=== PATIENT | male | born 1965 | race Caucasian/White ===

== ENCOUNTER 2021-06-21 08:52 | Observation (INO) ==
[2021-06-21] MEDS ORDERED: ZOFRAN INJ 4 MG VIAL IVP ONE ×2 (09:12→10:34)
[2021-06-21] MEDS ORDERED: NS 1,000 ML IV 1,000 ML IV ONE ×2 (09:12→10:28)
[2021-06-21 09:13] VITALS: BMI 28.7
--- NOTE | 2021-06-21 09:19 | DR.DIZZY ---
HPI Time seen Time Seen by Provider: 06/21/21 09:02 Complaint Chief Complaint Doctor Comments: 56 y/o male presents with generalized weakness since last pm. Recently treated for dental infection with amoxicillin/tramadol x past few days. Didn't sleep well do to mouth pain. Pain was located left lower jaw, was constant, currently better, no pain. Got up and moved bowels this am, developed onset of generalized weakness this am. Denies pain, fever, chills, URI symptoms. No bowel or bladder issues. Having nausea, no vomiting. COVID-19 Coronavirus risk:travel/contact w/high risk person: No Has patient experienced Coronavirus symptoms: No Nurses Notes Reviewed Nurses Notes Review: Yes Source History Provided: Patient and Significant Other Mode of Arrival Mode of Arrival: Ambulatory Context Stroke Symptoms: None PMH PMH Past Medical History Comment: borderline diabetes, hypothyroidism (s/p partial thyroidectomy) Surgical History: Thyroidectomy (partial) and Tonsillectomy Infectious screening Isolation: Standard ROS Review of Systems Constitutional: Weakness Eyes: No Symptoms Reported ENTM: No Symptoms Reported Respiratoy: No Symptoms Reported Cardiovascular: No Symptoms Reported Gastrointestinal/Abdominal: Nausea Genitourinary: No Symptoms Reported Neurological: No Symptoms Reported Musculoskeletal: No Symptoms Reported Integumentary: No Symptoms Reported Hematologic/Lymphatic: No Symptoms Reported Psychiatric: No Symptoms Reported All Other Systems: Reviewed and Negative PE Vital Signs Vitals: Temperature 97.8 F Pulse Rate 88 Respiratory Rate 15 Blood Pressure 172/90 O2 Sat by Pulse Oximetry 98 General Limitations: No Limitations General Appearance: Alert and In No Apparent Distress Head Head Exam: Normal Inspection Eyes Eye exam: Normal Appearance ENT ENT Exam: Normal Exam and Mucous Membranes Moist Neck Neck Exam: Normal Inspection Chest Chest Inspection: Normal Inspection Respiratory Respiratory Exam: Normal Lung Sounds Bilat; negative Accessory Muscle Use and Respiratory Distress Respiratory Exam: Bilateral: Clear to Auscultation Cardiovascular Cardiovascular Exam: Regular Rate, Normal Rhythm and Normal Heart Sounds Abdominal Exam Abdominal Exam: Normal Inspection, Normal Bowel Sounds and Soft; negative Tenderness Extremeties Extremities Exam: Normal Inspection Neurologic Neurological Exam: Alert, Oriented X3 and CN II-XII Intact; negative Motor Sensory Deficit Psychiatric Psychiatric Exam: Normal Affect Skin Skin Exam: Warm and Dry MDM Differential Diagnosis Differential Diagnosis: Dehydration, Electrolyte disorder and Other (dental abscess) COURSE Treatment Treatment: 56 y/o recently started treatment for dental infection, presents with nausea and weakness this AM. PE benign, VSS. W/u initiated. Given IV fluids, IV zofran. 1318 - Pt was given 2nd L NS, 2nd round of zofran. No improvement. Given IM phenergan. W/u unremarkable. Possible reaction to tramadol, started yesterday. Discussed findings with pt. Discussed with his PCP, Dr Khanna, will admit for observation. ROR Labs Reviewed Laboratory Results Reviewed?: Yes Result Diagrams: 06/21/21 09:33 06/21/21 09:33 Laboratory: WBC 6.9 X10^3/uL (3.6-10.0) 06/21/21 09:33 RBC 4.95 X10^6/uL (4.7-6.0) 06/21/21 09:33 Hgb 15.3 g/dL (13.5-18.0) 06/21/21 09:33 Hct 44.8 % (42.0-54.0) 06/21/21 09:33 MCV 90.6 fL (80.0-100.0) 06/21/21 09:33 MCH 30.9 pg (27.0-34.0) 06/21/21 09:33 MCHC 34.1 g/dL (33.0-35.0) 06/21/21 09:33 RDW 13.5 % (11.6-16.5) 06/21/21 09:33 Plt Count 159 X10^3/uL (150.0-450.0) 06/21/21 09:33 MPV 9.1 fL (7.4-11.0) 06/21/21 09:33 Neut % (Auto) 82.0 % (42.0-75.0) H 06/21/21 09:33 Lymph % (Auto) 13.3 % (21.0-51.0) L 06/21/21 09:33 [place] % (Auto) 3.8 % (0.0-13.0) 06/21/21 09:33 Eos % (Auto) 0.5 % (0.9-2.9) L 06/21/21 09:33 Baso % (Auto) 0.4 % (0.2-1.0) 06/21/21 09:33 Neut # (Auto) 5.7 x10^3/uL (2.2-4.8) H 06/21/21 09:33 Lymph # (Auto) 0.9 X10^3/uL (1.3-2.9) L 06/21/21 09:33 [place] # (Auto) 0.3 x10^3/uL (0.3-0.8) 06/21/21 09:33 Eos # (Auto) 0.0 x10^3/uL (0.0-0.2) 06/21/21 09:33 Baso # (Auto) 0.0 X10^3/uL (0.0-0.1) 06/21/21 09:33 Absolute Nucleated RBC 0.1 /100WBC 06/21/21 09:33 Sodium 140 mmol/L (136-145) 06/21/21 09:33 Corrected Sodium 141 mmol/L (136-145) 06/21/21 09:33 Potassium 3.9 mmol/L (3.5-5.1) 06/21/21 09:33 Chloride 103 mmol/L (98-107) 06/21/21 09:33 Carbon Dioxide 28.2 mmol/L (21-32) 06/21/21 09:33 BUN 11 mg/dL (7-18) 06/21/21 09:33 Creatinine 1.35 mg/dL (0.70-1.30) H 06/21/21 09:33 Est GFR (MDRD) Af Amer > 60 (>60) 06/21/21 09:33 Est GFR (MDRD) Non-Af 58 (>60) L 06/21/21 09:33 Glucose 151 mg/dL (65-99) H 06/21/21 09:33 Calcium 8.7 mg/dL (8.5-10.1) 06/21/21 09:33 Corrected Calcium TNP 06/21/21 09:33 Total Bilirubin 0.70 mg/dL (0.2-1.0) 06/21/21 09:33 AST 17 Units/L (15-37) 06/21/21 09:33 ALT 34 Units/L (12-78) 06/21/21 09:33 Alkaline Phosphatase 60 Units/L (46-116) 06/21/21 09:33 Creatine Kinase 108 Units/L (39-308) 06/21/21 09:33 CK-MB (CK-2) 1.0 ng/mL (0-4.0) 06/21/21 09:33 CK/CKMB % Calc 0.9 % (<4) 06/21/21 09:33 Troponin I < 0.02 ng/mL (0-1.5) 06/21/21 09:33 Total Protein 6.7 g/dL (6.4-8.2) 06/21/21 09:33 Albumin 3.6 g/dL (3.4-5.0) 06/21/21 09:33 Globulin 3.1 g/dL (2.5-4.5) 06/21/21 09:33 Albumin/Globulin Ratio 1.2 Ratio (1.1-2.1) 06/21/21 09:33 Lipase 132 Units/L (73-393) 06/21/21 09:33 EKG Rate: 77 [place]: LAD Rhythm: NSR Block: None Hypertrophy: LAE ST: Nonsp Opioid Opioid Risk Tool Total: 0 Total Score Risk Category: Low Risk Copyright: Roc CASEY predicting aberrant behaviors Diagnosis Discharge Problem: Nausea Narrative Support Text: Weakness Instructions Forms: Precautions for COVID19 [facility] Patient Portal Social Distancing
[2021-06-21] MEDS ORDERED: NS 1,000 ML IV 1,000 ML ONE ×2 (09:23→10:29)
[2021-06-21] MEDS ORDERED: ZOFRAN INJ 4 MG VIAL ONE ×2 (09:23→10:36)
[2021-06-21 09:39] LABS: BASOPHILS % (AUTO) 0.4 % (0.2-1.0); EOSINOPHILS % (AUTO) 0.5 % (0.9-2.9); HEMATOCRIT 44.8 % (42.0-54.0); HEMOGLOBIN 15.3 g/dL (13.5-18.0); LYMPHOCYTES # (AUTO) 0.9 X10^3/uL (1.3-2.9); LYMPHOCYTES % (AUTO) 13.3 % (21.0-51.0); MEAN CORPUSCULAR HEMOGLOBIN 30.9 pg (27.0-34.0); MEAN CORPUSCULAR HGB CONC 34.1 g/dL (33.0-35.0); MEAN CORPUSCULAR VOLUME 90.6 fL (80.0-100.0); MEAN PLATELET VOLUME 9.1 fL (7.4-11.0); MONOCYTES # (AUTO) 0.3 x10^3/uL (0.3-0.8); MONOCYTES % (AUTO) 3.8 % (0.0-13.0); NEUTROPHILS # (AUTO) 5.7 x10^3/uL (2.2-4.8); PLATELET COUNT 159 X10^3/uL (150.0-450.0); RED BLOOD COUNT 4.95 X10^6/uL (4.7-6.0); RED CELL DISTRIBUTION WIDTH 13.5 % (11.6-16.5); WHITE BLOOD COUNT 6.9 X10^3/uL (3.6-10.0)
[2021-06-21 10:05] LABS: ALANINE AMINOTRANSFERASE 34 Units/L (12-78); ALBUMIN 3.6 g/dL (3.4-5.0); ALKALINE PHOSPHATASE 60 Units/L (46-116); ASPARTATE AMINO TRANSFERASE 17 Units/L (15-37); BLOOD UREA NITROGEN 11 mg/dL (7-18); CALCIUM 8.7 mg/dL (8.5-10.1); CARBON DIOXIDE 28.2 mmol/L (21-32); CHLORIDE 103 mmol/L (98-107); CKMB % 0.9 % (<4); COR NA(FOR HYPERGLY) 141 mmol/L (136-145); CREATINE KINASE 108 Units/L (39-308); CREATININE 1.35 mg/dL (0.70-1.30); LIPASE 132 Units/L (73-393); SODIUM 140 mmol/L (136-145); TOTAL PROTEIN 6.7 g/dL (6.4-8.2); TROPONIN I < 0.02 ng/mL (0-1.5); eGFR NON BLACK RACES 58 (>60)
--- NOTE | 2021-06-21 10:09 | RAD ---
HISTORYN/V, WEAKNESS. DENTAL WORK YESTERDAYSTUDYCHEST, 1 VIEWCOMPARISONNoneTECHNIQUEAP view of the chestFINDINGSThe cardiac and mediastinal contours are within normal limits. The lungs are clear without focal consolidation or segmental collapse. No pleural effusion or pneumothorax.IMPRESSIONNo acute pulmonary process.Electronically signed by: sIai Hyde (Jun 21, 2021 10:08:43)
[2021-06-21] MEDS ORDERED: PROTONIX INJ 40 MG VIAL IVP ONE (10:34)
[2021-06-21] MEDS ORDERED: PROTONIX INJ 40 MG VIAL ONE (10:36)
[2021-06-21] MEDS ORDERED: PHENERGAN INJ 25 MG IM ONE ×2 (11:45→12:16)
[2021-06-21] MEDS ORDERED: D5 1/2 NS 1,000 ML 1,000 ML IV ONE (12:21)
[2021-06-21] MEDS: D5 1/2 NS 1,000 ML 1,000 ML IV SCH ×2 (12:27→20:58)
[2021-06-21] MEDS ORDERED: NORCO 5/325 MG TAB PO ONE (13:49)
[2021-06-21 13:52] LABS: APPEARANCE,URINE CLEAR (CLEAR); BILIRUBIN,URINE NEGATIVE (NEGATIVE); BLOOD/HEMOGLOBIN,URINE NEGATIVE (NEGATIVE); COLOR,URINE YELLOW (YELLOW); GLUCOSE, URINE 2+ (NEGATIVE); KETONES,URINE 2+ (NEGATIVE); LEUKOCYTE ESTERASE ,URINE NEGATIVE (NEGATIVE); NITRITES,URINE NEGATIVE (NEGATIVE); PROTEIN,URINE NEGATIVE (NEGATIVE); UROBILINOGEN,URINE NORMAL (NORMAL)
[2021-06-21] MEDS ORDERED: NORCO 5/325 MG TAB ONE (14:30)
[2021-06-21] MEDS ORDERED: ZOFRAN INJ 4 MG VIAL IVP PRN (14:38)
[2021-06-21] MEDS ORDERED: D5 1/2 NS 1,000 ML 1,000 ML IV SCH (14:38)
[2021-06-21 15:36] LABS: CKMB % 1.4 % (<4); CREATINE KINASE 89 Units/L (39-308); CREATINE KINASE MB 1.2 ng/mL (0-4.0); TROPONIN I < 0.02 ng/mL (0-1.5)
[2021-06-21] MEDS: NORCO 5/325 MG TAB PO PRN (20:58)
[2021-06-21 21:39] LABS: CKMB % 1.1 % (<4); CREATINE KINASE 89 Units/L (39-308); TROPONIN I < 0.02 ng/mL (0-1.5)
[2021-06-22 03:15] LABS: BASOPHILS % (AUTO) 0.6 % (0.2-1.0); EOSINOPHILS # (AUTO) 0.1 x10^3/uL (0.0-0.2); EOSINOPHILS % (AUTO) 1.6 % (0.9-2.9); HEMATOCRIT 41.3 % (42.0-54.0); HEMOGLOBIN 13.9 g/dL (13.5-18.0); LYMPHOCYTES # (AUTO) 2.2 X10^3/uL (1.3-2.9); LYMPHOCYTES % (AUTO) 28.7 % (21.0-51.0); MEAN CORPUSCULAR HEMOGLOBIN 30.6 pg (27.0-34.0); MEAN CORPUSCULAR HGB CONC 33.7 g/dL (33.0-35.0); MEAN CORPUSCULAR VOLUME 90.7 fL (80.0-100.0); MEAN PLATELET VOLUME 9.2 fL (7.4-11.0); MONOCYTES # (AUTO) 0.5 x10^3/uL (0.3-0.8); MONOCYTES % (AUTO) 6.7 % (0.0-13.0); NEUTROPHILS # (AUTO) 4.8 x10^3/uL (2.2-4.8); NEUTROPHILS % (AUTO) 62.4 % (42.0-75.0); PLATELET COUNT 140 X10^3/uL (150.0-450.0); RED BLOOD COUNT 4.56 X10^6/uL (4.7-6.0); RED CELL DISTRIBUTION WIDTH 13.9 % (11.6-16.5); WHITE BLOOD COUNT 7.6 X10^3/uL (3.6-10.0)
[2021-06-22 03:23] LABS: ALANINE AMINOTRANSFERASE 29 Units/L (12-78); ALBUMIN 2.9 g/dL (3.4-5.0); ALKALINE PHOSPHATASE 50 Units/L (46-116); ASPARTATE AMINO TRANSFERASE 14 Units/L (15-37); BLOOD UREA NITROGEN 7 mg/dL (7-18); CALCIUM 8.1 mg/dL (8.5-10.1); CARBON DIOXIDE 31.1 mmol/L (21-32); CHLORIDE 107 mmol/L (98-107); SODIUM 143 mmol/L (136-145); TOTAL PROTEIN 5.7 g/dL (6.4-8.2); eGFR NON BLACK RACES > 60 (>60)
[2021-06-22 03:31] LABS: CKMB % 1.3 % (<4); CREATINE KINASE 77 Units/L (39-308); CREATINE KINASE MB < 1.0 ng/mL (0-4.0); TROPONIN I < 0.02 ng/mL (0-1.5)
[2021-06-22] MEDS: D5 1/2 NS 1,000 ML 1,000 ML IV SCH (04:03)
[2021-06-22] MEDS: NORCO 5/325 MG TAB PO PRN ×2 (04:03→09:00)
[2021-06-22 08:11] VITALS: BP 161/86
[2021-06-22] MEDS ORDERED: CELEBREX PO ONE (08:57)
--- NOTE | 2021-06-22 11:22 | DR.CARTERS ---
Short Stay Summary - Admission Date Date of Admission: 06/21/21 - Discharge Date Discharge Date: 06/22/21 - Admission Diagnoses (1) Weakness Status: Acute (2) Dizziness Status: Acute (3) Nausea Status: Acute (4) Dental abscess Status: Acute - Hospital Course Hospital Course: TIME SPENT ON CLINICAL ASSESSMENT, REVIEWING LABS AND IMAGING, DECISION MAKING, AND DOCUMENTATION GREATER THAN 75 MINUTES. IS A 56 YEAR OLD PATIENT OF OURS. HE PRESENTED TO THE ER WITH COMPLAINTS OF SEVERE WEAKENSS, DIZZINESS, AND LEFT SIDED LOWER JAW PAIN. PATIENT REPORTED RECENTLY BEING DIAGNOSED WITH A DENTAL ABSCESS. HE WAS PRESCRIBED AMOXICILLIN AND TRAMADOL. HE REPORTED BEING COMPLIANT WITH MEDICATIONS. HE REPORTED THAT UPON WAKENING ON 06/21, HE HAD SEVERE WEAKNESS AND WAS UNABLE TO STAND DUE TO DIZZINESS. HE DENIED FEVER, CHILLS, URI SYMPTOMS, OR VOMITING. HE DID ADMIT TO NAUSEA. HIS PMH INCLUDES HYPOTHYROIDISM, PARITAL THYROIDECTOMY, AND TONSILLECTOMY. ON ARRIVAL, VITALS WERE: 97.8-93-16-99%-171/86. LABS WERE OBTAINED. HE WAS HEMODYNAMICALLY STABLE. CARDIAC ENZYMES WERE WITHIN NORMAL LIMITS. TSH WITHIN NORMAL RANGE. URINALYSIS UNREMARKABLE. COVID-19 NEGATIVE. CHEST XRAY OBTAINED AND REVEALED: NO ACUTE PULMONARY PROCESS. IN THE ER, HE WAS GIVEN A NORMAL SALINE BOLUS X 2, ZOFRAN 4MG IV X 2, PROTONIX 40MG IV X 1, PHENERGAN 25MG IM X 1, NORCO 5/325MG PO X 1. HE CONTINUED WITH SEVERE WEAKNESS, DIZZINESS, AND NAUSEA, DESPITE MEDS GIVEN. HE WAS ADMITTED TO THE HOSPITAL FOR FURTHER EVALUATION AND TREATMENT OF WEAKNESS, DIZZINESS, NAUSEA, DENTAL ABSCESS. HE WAS STARTED ON D51/2NS AT 125ML/HR, NORCO 5/325MG PO Q4H PRN PAIN, ZOFRAN 4MG IV Q6H PRN PAIN, AND AMOXICILLIN 500MG QID. OTHERWISE, WE PLANNED TO FOLLOW UP WITH AM LABS AND CONTINUE TO MONITOR. ON THE MORNING FOLLOWING ADMISSION, PATIENT IS ALERT AND ORIENTED, LYING IN BED ON MORNING ROUNDS. HE DENIES WEAKNESS OR DIZZINESS THIS MORNING. HE DOES CONTINUE WITH PAIN TO THE LEFT JAW AREA AND OCCASIONAL NAUSEA, BUT ADMITS TO IMPROVEMENT SINCE ADMISSION. ON EXAMINATION, HE DOES HAVE SLIGHT ERYTHEMA AND SWELLING TO THE LEFT LOWER GUM AREA. HEART IS REGULAR IN RATE AND RHYTHM. ABDOMEN IS ROUND, SOFT, AND NON-TENDER WITH NORMAL BOWEL SOUNDS NOTED IN ALL QUADRANTS. HIS VITALS THIS MORNING ARE: 98.8-70-20-98%-161/86. LABS WERE OBTAINED. HE REMAINS HEMODYNAMICALLY STABLE. WE PLANNED FOR DISCHARGE. INSTRUCTIONS FOR MEDICATIONS AND FOLLOW UP WERE DISCUSSED WITH PATIENT AND SPOUSE. HE WAS INSTRUCTED TO CONTINUE THE AMOXICILLIN 500MG PO QID. HE WAS GIVEN NEW PRESCRIPTIONS FOR NORCO 5/325MG PO Q6H PRN PAIN, ZOFRAN 8MG PO Q8H PRN NAUSEA, AND CELECOXIB 200MG PO DAILY. HE WAS INSTRUCTED TO FOLLOW UP WITH HIS DENTIST FOR FURTHER TREATMENT. WE WILL FOLLOW UP WITH HIM IN THE OFFICE IN TWO WEEKS. PATIENT DISCHARGED HOME WITH SPOUSE IN IMPROVED CONDITION. - Discharge Medications Discharge Medications: Home Medication List amoxicillin 500 mg PO QID 06/21/21 [History] celecoxib 200 mg PO DAILY #30 cap 06/22/21 [Rx] hydrocodone-acetaminophen 1 tab PO Q6H PRN #30 tab MDD 4 TABLETS 06/22/21 [Rx] ondansetron 8 mg PO Q8H PRN #30 tab 06/22/21 [Rx] ondansetron HCl [Zofran] 4 mg PO Q4H PRN #30 tab 06/22/21 [Rx] Prescriptions: celecoxib Sawyer Khanna hydrocodone-acetaminophen Sawyer Khanna ondansetron Sawyer Khanna ondansetron HCl [Zofran] Sawyer Khanna - Discharge Plan Disposition: 01 HOME, SELF-CARE Condition: Stable Prescriptions: celecoxib 200 mg PO DAILY #30 cap hydrocodone-acetaminophen 1 tab PO Q6H PRN #30 tab MDD 4 TABLETS PRN Reason: ondansetron 8 mg PO Q8H PRN #30 tab PRN Reason: ondansetron HCl [Zofran] 4 mg PO Q4H PRN #30 tab PRN Reason: - Follow up/Referrals Follow up/Referrals: Sawyer Khanna [Primary Care Provider] - (Follow up as needed.) - Instructions Instructions: Antibiotic Medicine, Adult, [id number], Nausea and Vomiting, Adult, [id number], Pain Medicine Instructions, [id number], Dental Pain, [id number] Forms: Precautions for COVID19, [facility], Patient Portal, Social Distancing
== END 2021-06-22 12:00 | disposition home or self-care (01) ==
LOC: ER 08:52 → MED/SURG 08:52
PROVIDERS: ADMIT Internal Medicine; ATTEND Internal Medicine
DX: E03.8 Other specified hypothyroidism; K04.7 Periapical abscess without sinus; R94.31 Abnormal electrocardiogram [ECG] [EKG]; R73.09 Other abnormal glucose; R53.1 Weakness; R94.4 Abnormal results of kidney function studies; R42 Dizziness and giddiness

== ENCOUNTER 2024-03-22 21:35 | Observation (INO) ==
[2024-03-22] MEDS: ZOFRAN INJ 4 MG VIAL IVP ONE ×2 (21:52→23:21)
[2024-03-22] MEDS: DEMEROL INJ IVP ONE (21:53)
--- NOTE | 2024-03-22 21:57 | DR.ABDMALE ---
HPI Time seen Time Seen by Provider: 03/22/24 21:57 PCP Primary Care Physician: JOAQUIN BARRIGA comment HPI Comment: History as below. Complaint Chief Complaint Doctors Comments: Patient is 58-year-old male in the emergency room with left lower quadrant abdominal pain that started today and have progressively gotten worse. Patient is nauseated and have thrown up. He denies fever, dysuria or diarrhea. Patient have history of diverticulosis and current pain is similar to his pain with diverticuli disease. Chief Complaint:: PT C/O LLQ PAIN X TODAY PAIN HAS JUST GOTTEN WORSE THE DAY WENT ON COVID-19 Coronavirus risk:travel/contact w/high risk person: No Has patient experienced Coronavirus symptoms: No Reviewed Nurses Notes Review: Yes Mode of arrival Mode of Arrival: Ambulatory Timing Onset of Chief Complaint: 03/22/24 PMH PMH Past Medical History: Yes Past Medical History Comment: DIVERTICULITIS Past Surgical History: Yes Surgical History: Thyroidectomy Family History History of Family Medical Conditions: Yes Family Medical History: Diabetes Mellitus, Cancer, Coronary Artery Disease and Hypertension Social History Does patient currently use any type of tobacco product: No Have you used tobacco products in the last 12 months: No Type of Tobacco Use: None Does any household member use tobacco: No Alcohol Use: Occasionally Do you use any recreational Drugs:: No Lives With: Family Lives Where: Home Travel Risk Coronavirus risk:travel/contact w/high risk person: No Has patient experienced Coronavirus symptoms: No Infectious screening In the last 2 months have you had wt loss of >10#?: NO Have you had fever, night sweats or hemotysis?: No Have you traveled outside the country in the last 6 months?: No Isolation: Standard ROS Review of Systems Constitutional: No Symptoms Reported; negative Fever Eyes: No Symptoms Reported ENTM: No Symptoms Reported Respiratoy: No Symptoms Reported; negative Moist Cough or Short of Breath Cardiovascular: No Symptoms Reported Gastrointestinal/Abdominal: Abdominal Pain, Nausea and Vomiting Genitourinary: No Symptoms Reported; negative Dysuria Neurological: No Symptoms Reported; negative Headache or Dizziness Musculoskeletal: No Symptoms Reported; negative Muscle Pain Integumentary: No Symptoms Reported Hematologic/Lymphatic: No Symptoms Reported Endocrine: No Symptoms Reported; negative Increased Thirst or Increased Urine Psychiatric: No Symptoms Reported All Other Systems: Reviewed and Negative PE Vital Signs Vital Signs: Temp Pulse Pulse Resp BP BP Pulse Ox 03/23/24 01:00 76 88 L 03/23/24 01:00 129/58 03/23/24 01:00 129/58 03/23/24 00:45 75 90 L 03/23/24 00:30 112/57 03/23/24 00:30 78 88 L 03/23/24 00:15 68 92 L 03/23/24 00:00 146/66 03/22/24 23:16 18 03/22/24 22:53 18 03/23/24 00:00 86 93 L 03/22/24 23:45 87 97 03/22/24 23:30 80 92 L 03/22/24 23:30 134/66 03/22/24 23:30 134/66 03/22/24 23:00 88 18 143/68 98 03/22/24 23:15 78 93 L 03/22/24 23:00 143/68 03/22/24 23:00 143/68 03/22/24 23:00 88 96 03/22/24 22:45 87 98 03/22/24 22:30 80 98 03/22/24 22:30 142/69 03/22/24 22:46 16 03/22/24 22:23 16 03/22/24 22:24 83 98 03/22/24 22:24 150/72 03/22/24 21:53 18 03/22/24 21:37 98.2 F 68 18 147/68 97 O2 Del Method 03/23/24 01:00 03/23/24 01:00 03/23/24 01:00 03/23/24 00:45 03/23/24 00:30 03/23/24 00:30 03/23/24 00:15 03/23/24 00:00 03/22/24 23:16 03/22/24 22:53 03/23/24 00:00 03/22/24 23:45 03/22/24 23:30 03/22/24 23:30 03/22/24 23:30 03/22/24 23:00 Room Air 03/22/24 23:15 03/22/24 23:00 03/22/24 23:00 03/22/24 23:00 03/22/24 22:45 03/22/24 22:30 03/22/24 22:30 03/22/24 22:46 03/22/24 22:23 03/22/24 22:24 03/22/24 22:24 03/22/24 21:53 03/22/24 21:37 Room Air General Limitations: No Limitations General Appearance: Alert and In No Apparent Distress Head Head Exam: Normal Inspection and Atraumatic Eyes Eye exam: Normal Appearance and PERRL; negative Scleral Icterus or Conjunctival Injection ENT ENT Exam: Normal Exam, Normal Oropharynx, Normal External Ear Exam and TM's Normal Bilaterally Neck Neck Exam: Normal Inspection and Trachea Midline; negative Tenderness Respiratory Respiratory Exam: Normal Lung Sounds Bilat, Accessory Muscle Use and Chest Wall Tenderness Respiratory Exam: Bilateral: Clear to Auscultation Cardiovascular Cardiovascular Exam: Regular Rate, Normal Rhythm and Normal Heart Sounds; negative Systolic Murmur or Diastolic Murmur Abdominal Exam Abdominal Exam: Normal Bowel Sounds, Soft and Tenderness Abdominal Tenderness: LLQ and Moderate Rectal Rectal Exam: Deferred Back Back Exam: Normal Inspection; negative (R) CVA Tenderness or (L) CVA Tenderness Extremeties Extremities Exam: Normal Inspection and Normal Capillary Refill Exam: Male: Deferred Neurologic Neurological Exam: Alert and Oriented X3; negative Motor Sensory Deficit Psychiatric Psychiatric Exam: Normal Affect and Normal Mood Skin Skin Exam: Warm and Intact; negative Rash MDM Differential Diagnosis Differential Diagnosis: Bowel Obstruction, Constipation, Diverticular disease, Inflammatory BD, Pancreatitis, Urinary tract infection and Urolithiasis COURSE Treatment Treatment: See orders done while patient was in the emergency room. Labs and CT report discussed. Patient was given normal saline 1 L IV bolus, Demerol 50mg IV and Zofran 4 mg IV while in the ER. Patient was also given Rocephin 1 g IV, Flomax 0.4 mg p.o and repeat medication for pain with Dilaudid 2 mg IV. Patient pain improved but started coming again after few hours. He was then admitted to hospital for further management. Consultation Consultation Comments: Discussed patient kelly Soto. He will admit patient. Education/Counseling Education/Counseling: Patient and Family Educated On: Diagnosis ROR Labs Reviewed Laboratory Results Reviewed?: Yes 03/22/24 21:57 03/22/24 21:57 Laboratory: WBC 13.8 X10^3/uL (3.6-10.0) H 03/22/24 21:57 RBC 5.02 X10^6/uL (4.7-6.0) 03/22/24 21:57 Hgb 15.3 g/dL (13.5-18.0) 03/22/24 21:57 Hct 45.9 % (42.0-54.0) 03/22/24 21:57 MCV 91.5 fL (80.0-100.0) 03/22/24 21:57 MCH 30.6 pg (27.0-34.0) 03/22/24 21:57 MCHC 33.4 g/dL (33.0-35.0) 03/22/24 21:57 RDW 13.8 % (11.6-16.5) 03/22/24 21:57 Plt Count 137 X10^3/uL (150.0-450.0) L 03/22/24 21:57 MPV 9.5 fL (7.4-11.0) 03/22/24 21:57 Neut % (Auto) 84.1 % (42.0-75.0) H 03/22/24 21:57 Lymph % (Auto) 11.5 % (21.0-51.0) L 03/22/24 21:57 [place] % (Auto) 3.9 % (0.0-13.0) 03/22/24 21:57 Eos % (Auto) 0.3 % (0.9-2.9) L 03/22/24 21:57 Baso % (Auto) 0.2 % (0.2-1.0) 03/22/24 21:57 Neut # (Auto) 11.6 x10^3/uL (2.2-4.8) H 03/22/24 21:57 Lymph # (Auto) 1.6 X10^3/uL (1.3-2.9) 03/22/24 21:57 [place] # (Auto) 0.5 x10^3/uL (0.3-0.8) 03/22/24 21:57 Eos # (Auto) 0.0 x10^3/uL (0.0-0.2) 03/22/24 21:57 Baso # (Auto) 0.0 X10^3/uL (0.0-0.1) 03/22/24 21:57 Absolute Nucleated RBC 0.1 /100WBC 03/22/24 21:57 Sodium 135 mmol/L (136-145) L 03/22/24 21:57 Corrected Sodium 136 mmol/L (136-145) 03/22/24 21:57 Potassium 4.1 mmol/L (3.5-5.1) 03/22/24 21:57 Chloride 102 mmol/L (98-107) 03/22/24 21:57 Carbon Dioxide 25.4 mmol/L (21-32) 03/22/24 21:57 BUN 20 mg/dL (7-18) H 03/22/24 21:57 Creatinine 1.47 mg/dL (0.70-1.30) H 03/22/24 21:57 Est GFR (MDRD) Af Amer > 60 (>60) 03/22/24 21:57 Est GFR (MDRD) Non-Af 52 (>60) L 03/22/24 21:57 Glucose 141 mg/dL (65-99) H 03/22/24 21:57 Calcium 9.0 mg/dL (8.5-10.1) 03/22/24 21:57 Corrected Calcium TNP 03/22/24 21:57 Total Bilirubin 0.70 mg/dL (0.2-1.0) 03/22/24 21:57 AST 23 Units/L (15-37) 03/22/24 21:57 ALT 32 Units/L (12-78) 03/22/24 21:57 Alkaline Phosphatase 52 Units/L (46-116) 03/22/24 21:57 Total Protein 7.1 g/dL (6.4-8.2) 03/22/24 21:57 Albumin 3.8 g/dL (3.4-5.0) 03/22/24 21:57 Globulin 3.3 g/dL (2.5-4.5) 03/22/24 21:57 Albumin/Globulin Ratio 1.2 Ratio (1.1-2.1) 03/22/24 21:57 Amylase 78 Units/L (25-115) 03/22/24 21:57 Lipase 49 Units/L (16-77) 03/22/24 21:57 XRAY XRAY Interpreted by: Radiologist (Report noted.) Opioid Opioid Risk Tool Age (Jhoan box if 16-45): No History of Preadolescent Sexual Abuse: No Total: 0 Total Score Risk Category: Low Risk Copyright: Roc CASEY predicting aberrant behaviors Discharge Plan Diagnosis Discharge Problem: Abdominal pain, Infection of kidney, Acute dehydration Discharge Plan Patient Disposition: 09 ADMITTED INPATIENT Condition: Stable
[2024-03-22] MEDS: NS 1,000 ML IV 1,000 ML IV ONE ×2 (22:01→23:21)
[2024-03-22 22:26] LABS: ALANINE AMINOTRANSFERASE 32 Units/L (12-78); ALBUMIN 3.8 g/dL (3.4-5.0); ALKALINE PHOSPHATASE 52 Units/L (46-116); AMYLASE 78 Units/L (25-115); ASPARTATE AMINO TRANSFERASE 23 Units/L (15-37); BLOOD UREA NITROGEN 20 mg/dL (7-18); CARBON DIOXIDE 25.4 mmol/L (21-32); CHLORIDE 102 mmol/L (98-107); COR NA(FOR HYPERGLY) 136 mmol/L (136-145); CREATININE 1.47 mg/dL (0.70-1.30); GLUCOSE 141 mg/dL (65-99); LIPASE 49 Units/L (16-77); POTASSIUM 4.1 mmol/L (3.5-5.1); SODIUM 135 mmol/L (136-145); TOTAL PROTEIN 7.1 g/dL (6.4-8.2); eGFR NON BLACK RACES 52 (>60)
[2024-03-22 22:29] LABS: BASOPHILS % (AUTO) 0.2 % (0.2-1.0); EOSINOPHILS % (AUTO) 0.3 % (0.9-2.9); HEMATOCRIT 45.9 % (42.0-54.0); HEMOGLOBIN 15.3 g/dL (13.5-18.0); LYMPHOCYTES # (AUTO) 1.6 X10^3/uL (1.3-2.9); LYMPHOCYTES % (AUTO) 11.5 % (21.0-51.0); MEAN CORPUSCULAR HEMOGLOBIN 30.6 pg (27.0-34.0); MEAN CORPUSCULAR HGB CONC 33.4 g/dL (33.0-35.0); MEAN CORPUSCULAR VOLUME 91.5 fL (80.0-100.0); MEAN PLATELET VOLUME 9.5 fL (7.4-11.0); MONOCYTES # (AUTO) 0.5 x10^3/uL (0.3-0.8); MONOCYTES % (AUTO) 3.9 % (0.0-13.0); NEUTROPHILS # (AUTO) 11.6 x10^3/uL (2.2-4.8); NEUTROPHILS % (AUTO) 84.1 % (42.0-75.0); PLATELET COUNT 137 X10^3/uL (150.0-450.0); RED BLOOD COUNT 5.02 X10^6/uL (4.7-6.0); RED CELL DISTRIBUTION WIDTH 13.8 % (11.6-16.5); WHITE BLOOD COUNT 13.8 X10^3/uL (3.6-10.0)
[2024-03-22] MEDS: DILAUDID INJ IVP ONE (22:46)
--- NOTE | 2024-03-22 22:46 | CT ---
EXAM: CT ABDOMEN AND PELVIS WITHOUT INTRAVENOUS CONTRASTHISTORY: Left lower quadrant abdominal pain.TECHNIQUE: Spiral axial CT images are obtained through the abdomen and pelvis without the administration of intravenous contrast. Additional coronal and sagittal reformatted images are reconstructed.DOSIMETRY: Total DLP 318.3 mGycm; CTDI 5.78 mGyCOMPARISON: None available.FINDINGS:GASTROINTESTINAL TRACT: There is colonic diverticulosis, especially in the sigmoid region, without CT evidence for acute diverticulitis. No evidence for bowel herniation, bowel obstruction, or colitis. A normal-appearing appendix is seen.GENITOURINARY SYSTEM: There is an approximately 3.3 mm diameter by 3.7 mm nonobstructing calculus in the distal left ureter, immediately above the UVJ (axial image 76; sagittal image 37; coronal image 35) with mild hydronephrosis/hydroureter and mild perinephric/periureteral streaky congestive changes; no gross urine extravasation/urinoma seen. There are tiny nonobstructing left upper and lower pole renal calculi. Axial image 36 and 45. The urinary bladder is grossly unremarkable for a non-dedicated exam. There is prostatomegaly (5 cm transverse by 4.4 cm AP by 5.4 cm CC) in keeping with BPH; concomitant occult neoplastic disease not excluded.CT ABDOMEN: There is borderline splenomegaly (13.8 cm AP); no focal splenic lesion is seen. The liver, pancreas, adrenal glands, gallbladder, aorta, and inferior vena cava are within normal limits for a noncontrast CT scan. There is no intra-abdominal or retroperitoneal lymphadenopathy, free fluid, or free air seen. No abdominal herniation is noted.CT PELVIS: No pelvic sidewall or inguinal lymphadenopathy is seen. No inguinal herniation is noted. No free fluid or free air is seen.BONES AND JOINTS: There is an approximately 4.1 cm transverse by 3.4 cm AP by 2.6 cm CC cavernous hemangioma within the L4 vertebral body. Axial image 51; coronal image 37; sagittal image 36. Multilevel DDD is seen throughout the distal thoracic and lumbar spine. L5/S1: Mild severe DDD marked by severe disc space narrowing, vacuum disc phenomenon, endplate sclerosis and chronic posterior disc bulge/marginal osteophyte complex (projecting 3.9 mm AP and encroaching upon the anterior thecal sac, lateral recesses, and neural foramen, with potential for nerve root impingements. There is osteoarthritis of both hips. There are clustered sclerotic lesion seen in the left posterior iliac bone (adjacent to the SI joint); nonspecific finding; DDx includes bone islands; cannot rule out sclerotic metastatic lesion (e.g. prostate cancer) in the appropriate clinical setting. Coronal image 43; axial image 66. Clinical correlation is advised. The visualized bony structures are otherwise within normal limits.LUNG BASES: The lung bases are clear. There is coronary atherosclerosis (LAD).IMPRESSION:1. Approximately 3.3 mm diameter by 3.7 mm nonobstructing calculus in the distal left ureter, immediately above the UVJ (axial image 76; sagittal image 37; coronal image 35) with mild hydronephrosis/hydroureter and mild perinephric/periureteral streaky congestive changes; no gross urine extravasation/urinoma seen.2. Tiny nonobstructing left upper and lower pole renal calculi. Axial image 36 and 45. The urinary bladder is grossly unremarkable for a non-dedicated exam.3. prostatomegaly (5 cm transverse by 4.4 cm AP by 5.4 cm CC) in keeping with BPH; concomitant occult neoplastic disease not excluded.4. Colonic diverticulosis, especially in the sigmoid region, without CT evidence for acute diverticulitis.5. No evidence for bowel herniation, bowel obstruction, appendicitis or colitis.6. No free fluid, free air, mass lesions, or lymphadenopathy seen.7. L5/S1: Mild severe DDD marked by severe disc space narrowing, vacuum disc phenomenon, endplate sclerosis and chronic posterior disc bulge/marginal osteophyte complex (projecting 3.9 mm AP and encroaching upon the anterior thecal sac, lateral recesses, and neural foramen, with potential for nerve root impingements.8. Clustered sclerotic lesion seen in the left posterior iliac bone (adjacent to the SI joint); nonspecific finding; DDx includes bone islands; cannot rule out sclerotic metastatic lesion (e.g. prostate cancer) in the appropriate clinical setting. Coronal image 43; axial image 66. Clinical correlation is advised. Consider follow-up whole-body nuclear medicine bone scan as clinically warranted.THIS IS AN ELECTRONICALLY VERIFIED FINAL REPORT03/22/2024 10:42 PM - Electronically signed by Catherine Watkins MD
[2024-03-23] MEDS: ROCEPHIN VIAL 1 GRAM 1 G in NS 100 ML IV 100 ML IV ONE (01:18)
[2024-03-23] MEDS: NS 1,000 ML IV 1,000 ML IV SCH (01:26)
[2024-03-23] MEDS ORDERED: DILAUDID INJ IVP PRN (01:35)
[2024-03-23] MEDS ORDERED: ZOFRAN INJ 4 MG VIAL IVP PRN (01:35)
[2024-03-23] MEDS: FLOMAX PO SCH ×2 (01:35→11:07)
[2024-03-23] MEDS: ROCEPHIN VIAL 1 GRAM ONE (01:41)
[2024-03-23] MEDS: FLOMAX ONE (01:42)
[2024-03-23] MEDS: COMPAZINE INJ IVP ONE (01:47)
[2024-03-23 02:29] VITALS: BMI 30.3
[2024-03-23 05:07] LABS: BILIRUBIN,URINE NEGATIVE (NEGATIVE); BLOOD/HEMOGLOBIN,URINE NEGATIVE (NEGATIVE); GLUCOSE, URINE 4+ (NEGATIVE); KETONES,URINE 1+ (NEGATIVE); LEUKOCYTE ESTERASE ,URINE NEGATIVE (NEGATIVE); NITRITES,URINE NEGATIVE (NEGATIVE); PROTEIN,URINE NEGATIVE (NEGATIVE); UROBILINOGEN,URINE NORMAL (NORMAL)
[2024-03-23 05:10] LABS: APPEARANCE,URINE HAZY (CLEAR); COLOR,URINE YELLOW (YELLOW)
[2024-03-23 05:58] LABS: BASOPHILS % (AUTO) 0.2 % (0.2-1.0); HEMATOCRIT 46.4 % (42.0-54.0); HEMOGLOBIN 15.2 g/dL (13.5-18.0); LYMPHOCYTES # (AUTO) 0.8 X10^3/uL (1.3-2.9); LYMPHOCYTES % (AUTO) 6.8 % (21.0-51.0); MEAN CORPUSCULAR HEMOGLOBIN 30.3 pg (27.0-34.0); MEAN CORPUSCULAR HGB CONC 32.8 g/dL (33.0-35.0); MEAN CORPUSCULAR VOLUME 92.6 fL (80.0-100.0); MEAN PLATELET VOLUME 9.5 fL (7.4-11.0); MONOCYTES # (AUTO) 0.3 x10^3/uL (0.3-0.8); NEUTROPHILS # (AUTO) 10.3 x10^3/uL (2.2-4.8); PLATELET COUNT 126 X10^3/uL (150.0-450.0); RED BLOOD COUNT 5.01 X10^6/uL (4.7-6.0); RED CELL DISTRIBUTION WIDTH 13.7 % (11.6-16.5); WHITE BLOOD COUNT 11.4 X10^3/uL (3.6-10.0)
[2024-03-23 06:16] LABS: ALANINE AMINOTRANSFERASE 35 Units/L (12-78); ALBUMIN 3.6 g/dL (3.4-5.0); ALKALINE PHOSPHATASE 53 Units/L (46-116); ASPARTATE AMINO TRANSFERASE 18 Units/L (15-37); BLOOD UREA NITROGEN 18 mg/dL (7-18); CALCIUM 8.6 mg/dL (8.5-10.1); CARBON DIOXIDE 25.5 mmol/L (21-32); CHLORIDE 103 mmol/L (98-107); COR NA(FOR HYPERGLY) 140 mmol/L (136-145); GLUCOSE 133 mg/dL (65-99); POTASSIUM 4.3 mmol/L (3.5-5.1); SODIUM 139 mmol/L (136-145); eGFR NON BLACK RACES 44 (>60)
[2024-03-23] MEDS: DEMEROL INJ ONE (12:18)
[2024-03-23] MEDS: ZOFRAN INJ 4 MG VIAL ONE (12:19)
[2024-03-23] MEDS: NS 1,000 ML IV 1,000 ML ONE ×2 (12:20→12:22)
[2024-03-23] MEDS: DILAUDID INJ ONE (12:22)
[2024-03-23] MEDS: COMPAZINE INJ ONE (12:23)
--- NOTE | 2024-03-23 12:26 | DR.H&P ---
H&P History & Physical for Day of: H&P Date: 03/23/24 Chief Complaint Chief Complaint: Abdominal pain History of Present Illness History of Present Illness: Patient is a 58-year-old male with no past medical history presenting to the ER after having severe lower abdominal pain primarily in the left lower quadrant. He reports the pain was sharp and radiating to his lower back. Denies fevers, chills, nausea, vomiting. No change in bowel habits. Labs/imaging: WBC 11.4, hemoglobin 15.2, platelets 126, sodium 139, potassium 4.3, creatinine 1.70, glucose 133, CT abdomen and pelvis was obtained that revealed: Approximately 3.3 mm diameter by 3.7 mm nonobstructing calculus in the distal left ureter,immediately above the UVJ with mild hydronephrosis/hydroureter and mild perinephric/periureteral streaky congestive changes. Tiny nonobstructing left upper and lower pole renal calculi. The urinary bladder is grossly unremarkable for a non-dedicated exam. Prostatomegaly (5 cm transverse by 4.4 cm AP by 5.4 cm CC) in keeping with BPH; concomitant occult neoplastic disease not excluded. Clustered sclerotic lesion seen in the left posterior iliac bone (adjacent to the SI joint); nonspecific finding;cannot rule out sclerotic metastatic lesion (e.g. prostate cancer) in the appropriate clinical setting. Patient is admitted for nephrolithiasis. On exam he is feeling much better and pain has subsided significantly. He is on pain medication as needed. Believe his symptoms are related to the kidney stones. Will continue with IV fluids and add Flomax. IV antibiotics: Rocephin. Discussed with patient the concerning results on the CT that included his prostate. He will need to be seen outpatient by urology. He would like to be followed by Dr. Herrera. Will place referral. Will also get a PSA. Otherwise continue with current treatment plan. Continue closely monitor and follow-up labs. Past Surgical History Surgical History: Thyroidectomy Family History Family Medical History: Diabetes Mellitus, Cancer, Coronary Artery Disease and Hypertension Social History Does patient currently use any type of tobacco product: No Have you used tobacco products in the last 12 months: No Type of Tobacco Use: None Does any household member use tobacco: No Alcohol Use: None Drug Use: None Medications Home Medications: Home Medications Medication Instructions Recorded Confirmed Type NK 03/23/24 03/23/24 History Allergies Allergies Allergy/AdvReac Type Severity Reaction Status Date / Time codeine AdvReac Verified 06/21/21 09:04 Labs 03/23/24 05:30 03/23/24 05:30 Labs: Laboratory WBC 11.4 X10^3/uL (3.6-10.0) H 03/23/24 05:30 RBC 5.01 X10^6/uL (4.7-6.0) 03/23/24 05:30 Hgb 15.2 g/dL (13.5-18.0) 03/23/24 05:30 Hct 46.4 % (42.0-54.0) 03/23/24 05:30 MCV 92.6 fL (80.0-100.0) 03/23/24 05:30 MCH 30.3 pg (27.0-34.0) 03/23/24 05:30 MCHC 32.8 g/dL (33.0-35.0) L 03/23/24 05:30 RDW 13.7 % (11.6-16.5) 03/23/24 05:30 Plt Count 126 X10^3/uL (150.0-450.0) L 03/23/24 05:30 MPV 9.5 fL (7.4-11.0) 03/23/24 05:30 Neut % (Auto) 90.0 % (42.0-75.0) H 03/23/24 05:30 Lymph % (Auto) 6.8 % (21.0-51.0) L 03/23/24 05:30 [place] % (Auto) 3.0 % (0.0-13.0) 03/23/24 05:30 Eos % (Auto) 0.0 % (0.9-2.9) L 03/23/24 05:30 Baso % (Auto) 0.2 % (0.2-1.0) 03/23/24 05:30 Neut # (Auto) 10.3 x10^3/uL (2.2-4.8) H 03/23/24 05:30 Lymph # (Auto) 0.8 X10^3/uL (1.3-2.9) L 03/23/24 05:30 [place] # (Auto) 0.3 x10^3/uL (0.3-0.8) 03/23/24 05:30 Eos # (Auto) 0.0 x10^3/uL (0.0-0.2) 03/23/24 05:30 Baso # (Auto) 0.0 X10^3/uL (0.0-0.1) 03/23/24 05:30 Absolute Nucleated RBC 0.1 /100WBC 03/23/24 05:30 Sodium 139 mmol/L (136-145) 03/23/24 05:30 Corrected Sodium 140 mmol/L (136-145) 03/23/24 05:30 Potassium 4.3 mmol/L (3.5-5.1) 03/23/24 05:30 Chloride 103 mmol/L (98-107) 03/23/24 05:30 Carbon Dioxide 25.5 mmol/L (21-32) 03/23/24 05:30 BUN 18 mg/dL (7-18) 03/23/24 05:30 Creatinine 1.70 mg/dL (0.70-1.30) H 03/23/24 05:30 Est GFR (MDRD) Af Amer 53 (>60) L 03/23/24 05:30 Est GFR (MDRD) Non-Af 44 (>60) L 03/23/24 05:30 Glucose 133 mg/dL (65-99) H 03/23/24 05:30 Calcium 8.6 mg/dL (8.5-10.1) 03/23/24 05:30 Corrected Calcium TNP 03/23/24 05:30 Total Bilirubin 0.70 mg/dL (0.2-1.0) 03/23/24 05:30 AST 18 Units/L (15-37) 03/23/24 05:30 ALT 35 Units/L (12-78) 03/23/24 05:30 Alkaline Phosphatase 53 Units/L (46-116) 03/23/24 05:30 Total Protein 7.0 g/dL (6.4-8.2) 03/23/24 05:30 Albumin 3.6 g/dL (3.4-5.0) 03/23/24 05:30 Globulin 3.4 g/dL (2.5-4.5) 03/23/24 05:30 Albumin/Globulin Ratio 1.1 Ratio (1.1-2.1) 03/23/24 05:30 Amylase 78 Units/L (25-115) 03/22/24 21:57 Lipase 49 Units/L (16-77) 03/22/24 21:57 Specimen Type Clean catch urine 03/23/24 04:57 Urine Color Yellow (YELLOW) 03/23/24 04:57 Urine Appearance Hazy (CLEAR) 03/23/24 04:57 Urine pH 5.0 (5.0 - 8.0) 03/23/24 04:57 Ur Specific [place] 1.020 (1.000-1.030) 03/23/24 04:57 Urine Protein Negative (NEGATIVE) 03/23/24 04:57 Urine Glucose (UA) 4+ (NEGATIVE) 03/23/24 04:57 Urine Ketones 1+ (NEGATIVE) 03/23/24 04:57 Urine Blood Negative (NEGATIVE) 03/23/24 04:57 Urine Nitrite Negative (NEGATIVE) 03/23/24 04:57 Urine Bilirubin Negative (NEGATIVE) 03/23/24 04:57 Urine Urobilinogen Normal (NORMAL) 03/23/24 04:57 Ur Leukocyte Esterase Negative (NEGATIVE) 03/23/24 04:57 Review of Systems Constitutional: No Symptoms Reported Eyes: No Symptoms Reported ENT: No Symptoms Reported Respiratory: No Symptoms Reported Cardiovascular: No Symptoms Reported Gastrointestinal: Abdominal Pain Genitourinary: No Symptoms Reported Musculoskeletal: No Symptoms Reported Skin: No Symptoms Reported Neurological: No Symptoms Reported Physical Exam Vital Signs: Vital Signs Temperature 97.7 F Temperature 97.9 F Pulse Rate [Left Brachial] 96 Pulse Rate [Left Brachial] 94 Respiratory Rate 21 Respiratory Rate 18 Blood Pressure [Left Arm] 125/60 Blood Pressure [Left Arm] 168/69 O2 Sat by Pulse Oximetry 96 O2 Sat by Pulse Oximetry 98 Oriented: Normal Eyes: Normal Ear: Normal Nose: Normal Throat: Normal Respiratory: Clear Throughout Cardiovascular: Normal : Normal Auscultation: Bowel Sounds: Normal Palpation: Normal Tenderness: Suprapubic Skin: Normal Musculoskeletal: Normal Psychiatric: Normal Mood Description: Calm and Appropriate Affect: Normal Speech Pattern: Clear and Appropriate Assessment/Plan (1) Nephrolithiasis: Status: Acute Plan: IVF, Flomax (2) Cystitis: Status: Acute Plan: IV rocephin (3) Acute kidney injury: Status: Acute (4) BPH (benign prostatic hyperplasia): Status: Acute Review H&P Reviewed: Yes Patient was examined?: Yes
[2024-03-23] MEDS ORDERED: FLOMAX PO SCH (21:00)
[2024-03-24] MEDS: ROCEPHIN VIAL 1 GRAM 1 G in NS 100 ML IV 100 ML IV SCH (00:22)
[2024-03-24 06:27] LABS: BASOPHILS % (AUTO) 0.3 % (0.2-1.0); EOSINOPHILS # (AUTO) 0.1 x10^3/uL (0.0-0.2); EOSINOPHILS % (AUTO) 0.8 % (0.9-2.9); HEMATOCRIT 41.6 % (42.0-54.0); HEMOGLOBIN 13.8 g/dL (13.5-18.0); LYMPHOCYTES # (AUTO) 1.8 X10^3/uL (1.3-2.9); LYMPHOCYTES % (AUTO) 22.1 % (21.0-51.0); MEAN CORPUSCULAR HEMOGLOBIN 30.5 pg (27.0-34.0); MEAN CORPUSCULAR HGB CONC 33.1 g/dL (33.0-35.0); MEAN PLATELET VOLUME 9.9 fL (7.4-11.0); MONOCYTES # (AUTO) 0.6 x10^3/uL (0.3-0.8); MONOCYTES % (AUTO) 7.8 % (0.0-13.0); NEUTROPHILS # (AUTO) 5.5 x10^3/uL (2.2-4.8); PLATELET COUNT 124 X10^3/uL (150.0-450.0); RED BLOOD COUNT 4.53 X10^6/uL (4.7-6.0); RED CELL DISTRIBUTION WIDTH 14.2 % (11.6-16.5)
[2024-03-24 06:33] LABS: ALANINE AMINOTRANSFERASE 24 Units/L (12-78); ALBUMIN 2.9 g/dL (3.4-5.0); ALKALINE PHOSPHATASE 48 Units/L (46-116); ASPARTATE AMINO TRANSFERASE 19 Units/L (15-37); BLOOD UREA NITROGEN 13 mg/dL (7-18); CALCIUM 8.1 mg/dL (8.5-10.1); CARBON DIOXIDE 28.2 mmol/L (21-32); CHLORIDE 105 mmol/L (98-107); CREATININE 1.32 mg/dL (0.70-1.30); GLUCOSE 101 mg/dL (65-99); SODIUM 139 mmol/L (136-145); TOTAL PROTEIN 5.8 g/dL (6.4-8.2); eGFR NON BLACK RACES 59 (>60)
--- NOTE | 2024-03-24 11:36 | PCM.PROG ---
Progress Note Progress Note for Day of Date of Exam: 03/24/24 Subjective Subjective: Patient seen at bedside, no acute events overnight. He is currently admitted for renal stone, CLEMENTE and dehydration. He is feeling much better. He states flank/abdominal pain has resolved. Denies N/V/D, does report decreased appetite. He has been ambulating to the bathroom. He has not noticed any renal stone. Labs/imaging reviewed: -WBC 8 BUN/Cr: 13/.32 -CTAP reviewed Plan: continue hydration and pain control. Continue flomax. Continue IV Rocephin. Ambulate as tolerated. Patient prefers to be referred to Dr Herrera, will set up appointment for consultation outpatient. Monitor AM labs/imaging. Past Medical Family Social History Allergies: Allergies codeine Adverse Reaction (Verified 06/21/21 09:04) Vital Signs and I&O's Vital Signs: Vital Signs Temperature 97.6 F Temperature 97.9 F Pulse Rate [Left Brachial] 84 Pulse Rate [Left Brachial] 81 Respiratory Rate 18 Respiratory Rate 20 Blood Pressure [Left Arm] 150/76 Blood Pressure [Left Arm] 138/82 O2 Sat by Pulse Oximetry 97 O2 Sat by Pulse Oximetry 98 Intake and Output: Intake & Output 03/21/24 03/22/24 03/23/24 03/24/24 23:59 23:59 23:59 23:59 Intake Total 2724 / 2724 888 / 888 Output Total 900 / 900 1500 / 1500 Balance 1824 / 1824 -612 / -612 Physical Exam Oriented: Normal Eyes: Normal Ear: Normal Nose: Normal Throat: Normal Cardiovascular: Normal Auscultation: Bowel Sounds: Normal Palpation: Normal Tenderness: Normal Skin: Normal Musculoskeletal: Normal Psychiatric: Normal Mood Description: Calm and Appropriate Affect: Normal Speech Pattern: Clear and Appropriate Laboratory and Diagnostics 03/24/24 05:12 03/24/24 05:12 Labs: Laboratory WBC 8.0 X10^3/uL (3.6-10.0) 03/24/24 05:12 RBC 4.53 X10^6/uL (4.7-6.0) L 03/24/24 05:12 Hgb 13.8 g/dL (13.5-18.0) 03/24/24 05:12 Hct 41.6 % (42.0-54.0) L 03/24/24 05:12 MCV 92.0 fL (80.0-100.0) 03/24/24 05:12 MCH 30.5 pg (27.0-34.0) 03/24/24 05:12 MCHC 33.1 g/dL (33.0-35.0) 03/24/24 05:12 RDW 14.2 % (11.6-16.5) 03/24/24 05:12 Plt Count 124 X10^3/uL (150.0-450.0) L 03/24/24 05:12 MPV 9.9 fL (7.4-11.0) 03/24/24 05:12 Neut % (Auto) 69.0 % (42.0-75.0) 03/24/24 05:12 Lymph % (Auto) 22.1 % (21.0-51.0) 03/24/24 05:12 [place] % (Auto) 7.8 % (0.0-13.0) 03/24/24 05:12 Eos % (Auto) 0.8 % (0.9-2.9) L 03/24/24 05:12 Baso % (Auto) 0.3 % (0.2-1.0) 03/24/24 05:12 Neut # (Auto) 5.5 x10^3/uL (2.2-4.8) H 03/24/24 05:12 Lymph # (Auto) 1.8 X10^3/uL (1.3-2.9) 03/24/24 05:12 [place] # (Auto) 0.6 x10^3/uL (0.3-0.8) 03/24/24 05:12 Eos # (Auto) 0.1 x10^3/uL (0.0-0.2) 03/24/24 05:12 Baso # (Auto) 0.0 X10^3/uL (0.0-0.1) 03/24/24 05:12 Absolute Nucleated RBC 0.0 /100WBC 03/24/24 05:12 Sodium 139 mmol/L (136-145) 03/24/24 05:12 Corrected Sodium TNP 03/24/24 05:12 Potassium 4.0 mmol/L (3.5-5.1) 03/24/24 05:12 Chloride 105 mmol/L (98-107) 03/24/24 05:12 Carbon Dioxide 28.2 mmol/L (21-32) 03/24/24 05:12 BUN 13 mg/dL (7-18) 03/24/24 05:12 Creatinine 1.32 mg/dL (0.70-1.30) H 03/24/24 05:12 Est GFR (MDRD) Af Amer > 60 (>60) 03/24/24 05:12 Est GFR (MDRD) Non-Af 59 (>60) 03/24/24 05:12 Glucose 101 mg/dL (65-99) H 03/24/24 05:12 Calcium 8.1 mg/dL (8.5-10.1) L 03/24/24 05:12 Corrected Calcium 9.0 mg/dL (8.5-10.1) 03/24/24 05:12 Total Bilirubin 1.10 mg/dL (0.2-1.0) H 03/24/24 05:12 AST 19 Units/L (15-37) 03/24/24 05:12 ALT 24 Units/L (12-78) 03/24/24 05:12 Alkaline Phosphatase 48 Units/L (46-116) 03/24/24 05:12 Total Protein 5.8 g/dL (6.4-8.2) L 03/24/24 05:12 Albumin 2.9 g/dL (3.4-5.0) L 03/24/24 05:12 Globulin 2.9 g/dL (2.5-4.5) 03/24/24 05:12 Albumin/Globulin Ratio 1.0 Ratio (1.1-2.1) L 03/24/24 05:12 Amylase 78 Units/L (25-115) 03/22/24 21:57 Lipase 49 Units/L (16-77) 03/22/24 21:57 Total PSA 3.02 ng/mL (0.13-4.0) 03/23/24 05:30 Specimen Type Clean catch urine 03/23/24 04:57 Urine Color Yellow (YELLOW) 03/23/24 04:57 Urine Appearance Hazy (CLEAR) 03/23/24 04:57 Urine pH 5.0 (5.0 - 8.0) 03/23/24 04:57 Ur Specific [place] 1.020 (1.000-1.030) 03/23/24 04:57 Urine Protein Negative (NEGATIVE) 03/23/24 04:57 Urine Glucose (UA) 4+ (NEGATIVE) 03/23/24 04:57 Urine Ketones 1+ (NEGATIVE) 03/23/24 04:57 Urine Blood Negative (NEGATIVE) 03/23/24 04:57 Urine Nitrite Negative (NEGATIVE) 03/23/24 04:57 Urine Bilirubin Negative (NEGATIVE) 03/23/24 04:57 Urine Urobilinogen Normal (NORMAL) 03/23/24 04:57 Ur Leukocyte Esterase Negative (NEGATIVE) 03/23/24 04:57 Plan (1) Nephrolithiasis: Status: Acute (2) Cystitis: Status: Acute (3) Acute kidney injury: Status: Acute (4) BPH (benign prostatic hyperplasia): Status: Acute Qualifiers: Lower urinary tract symptom presence: symptoms present Lower urinary tract symptom detail: urinary obstruction Qualified Code(s): N40.1 - Benign prostatic hyperplasia with lower urinary tract symptoms; N13.8 - Other obstructive and reflux uropathy (5) Bone lesion: Status: Acute
[2024-03-24 12:17] VITALS: BP 142/75; PULSE 82; RESP 19; TEMP 97.5; O2SAT 98
== END 2024-03-24 15:35 | disposition home or self-care (01) ==
LOC: ER 21:35 → MED/SURG 21:35
PROVIDERS: ADMIT Family Medicine; ATTEND Internal Medicine